=== PATIENT | female | born 2000 | race Caucasian/White ===

== ENCOUNTER 2024-08-22 08:32 | Emergency (ER) | payer OTHER, MEDICAID ==
[~2024-08-22] VITALS: Ht 165.1 cm; Wt 91.0 kg
[2024-08-22 08:46] VITALS: O2SAT 97
[2024-08-22 09:53] LABS: BASOPHILS % 0.3 % (0.0-2.0); EOSINOPHILS % 2.1 % (0.0-5.0); HEMOGLOBIN. 13.6 g/dL (12.0-16.0); LYMPHOCYTES % 9.1 % (20.0-50.0); MEAN CORPUSCULAR HEMOGLOBIN 30.4 pg (28.0-32.0); MEAN CORPUSCULAR VOLUME 89.3 fL (81.0-99.0); MEAN PLATELET VOLUME 9.7 fl (7.4-10.4); MONOCYTES % 3.8 % (2.0-8.0); NEUTROPHILS % 84.7 % (40.0-76.0); PLATELET 284 x1000/uL (130-400); RED BLOOD CELL COUNT 4.47 mill/uL (4.2-5.4); RED CELL DISTRIBUTION WIDTH 13.6 % (11.6-14.6)
[2024-08-22 10:20] LABS: CHLORIDE 105 mEq/L (98-107); SODIUM 137 mEq/L (136-145)
[2024-08-22 10:21] LABS: CARBON DIOXIDE 24 mEq/L (21-32)
[2024-08-22] MEDS: ACETAMINOPHEN 325MG TABLET PO ONE (10:23)
[2024-08-22] MEDS: ONDANSETRON 4MG ODT PO ONE (10:24)
[2024-08-22 10:26] LABS: CREATININE 0.7 mg/dL (0.6-1.0); GLUCOSE 154 mg/dL (70-105)
[2024-08-22 10:27] LABS: UREA NITROGEN BLOOD 8 mg/dL (9-23)
[2024-08-22 10:50] LABS: HCG SCREEN POSITIVE
[2024-08-22] MEDS ORDERED: TOPUD PO (12:11)
[2024-08-22 12:25] VITALS: BP 115/75; PULSE 96; RESP 15; TEMP 36.22512; O2SAT 98
== END 2024-08-22 13:15 | disposition home or self-care (01) ==
LOC: ER 08:32
DX: S32.058A Other fracture of fifth lumbar vertebra, initial encounter for closed fracture (principal); F12.90 Cannabis use, unspecified, uncomplicated; J45.909 Unspecified asthma, uncomplicated; V03.10XA Pedestrian on foot injured in collision with car, pick-up truck or van in traffic accident, initial encounter; Y93.89 Activity, other specified; Y92.89 Other specified places as the place of occurrence of the external cause; Y99.8 Other external cause status
CPT/HCPCS: 80048; 82962; 84703; 85025; 36415; 73562; 70450; 72125; 74176; 99284; Q0162; Z7610; A4606